=== PATIENT | male | born 1930 | race Caucasian/White ===

== ENCOUNTER 2019-11-01 16:11 | Inpatient (IN) | payer MEDICARE ==
[2019-10-27 09:27] LABS: BASOPHILS % 0.5 % (0.0-1.0); EOSINOPHILS # (AUTO) 0.3 (0.0-0.4); EOSINOPHILS % 3.3 % (0.0-6.0); HEMATOCRIT 33.3 % (38.2-49.6); HEMOGLOBIN 10.5 g/dL (14.0-18.0); LYMPHOCYTES # (AUTO) 1.3 (1.0-3.2); LYMPHOCYTES % 14.7 % (18.0-39.1); MEAN CORPUSCULAR HGB CONC 31.5 g/dL (31-35); MEAN CORPUSCULAR VOLUME 104.7 fL (81-99); MONOCYTES # (AUTO) 0.5 (0.2-0.8); MONOCYTES % 5.3 % (4.4-11.3); NEUTROPHILS # (AUTO) 6.5 (2.1-6.9); NEUTROPHILS % 75.2 % (38.7-80.0); PLATELET COUNT 203 x10e3/uL (140-360); RED BLOOD COUNT 3.18 x10e6/uL (4.3-5.7)
[2019-10-27 09:48] LABS: ANION GAP 12.4 mmol/L (8-16); CALCIUM 8.5 mg/dL (8.4-10.2); CREATININE, SERUM 1.48 mg/dL (0.72-1.25); POTASSIUM 4.4 mmol/L (3.5-5.1)
--- NOTE | 2019-10-27 10:17 | Diagnostic Imaging Report ---
EXAMINATION: CHEST 2 VIEWS INDICATION: ^PREOP ^[id number] ^0900 COMPARISON: None FINDINGS: PA and lateral views TUBES and LINES: None. LUNGS: Lungs are well inflated. Lungs are clear. There is no evidence of pneumonia or pulmonary edema. PLEURA: No pleural effusion or pneumothorax. HEART AND MEDIASTINUM: The cardiomediastinal silhouette is unremarkable. BONES AND SOFT TISSUES: No acute osseous lesion. Soft tissues are unremarkable. UPPER ABDOMEN: No free air under the diaphragm. IMPRESSION: No acute thoracic radiographic abnormality. Signed by: Damon Unger MD on 10/27/2019 10:14 AM
[~2019-11-01] VITALS: Ht 170.2 cm; Wt 76.4 kg
[~2019-11-01 16:11] MED LIST: ACETAMINOPHEN 1000 MG/100 ML IV PRN; ACETAMINOPHEN/CODEINE 300MG - 30MG TAB PO PRN; AMLODIPINE BESYL5 MG PO; ASPIRIN325 MG PO; B&O 60MG R/S 60 MG SUPP PR ONE; B&O 60MG R/S 60 MG SUPP PR PRN; BACTRIM DS TAB1 EACH PO; CALCIUM 500+D1 EACH PO; DIPHENHYDRAMINE HCL 25 MG CAP PO PRN; FERROUS SULFAT324 MG PO; FINASTERIDE5 MG PO; FLOMAX0.4 MG PO; GABAPENTIN300 MG PO; GENTAMICIN 80MG/NS 100 ML 200 ML IV ONE; GLIPIZIDE ER2.5 MG PO; IOPAMIDOL 300MG/ML 50ML INFUS..BTL IV ONE; LEVOTHYROXINE100 MC1 IV; LEVOTHYROXINE50 MCG PO; LIPITOR20 MG PO; MOEXIPRIL HCL15 MG PO; OCULAR VITAMIN1 EACH PO; ONDANSETRON HCL INJ 2MG/ML 2ML 2 MG/ML VIAL IV PRN; PIPER-TAZ 3.375 GM 50 ML ONE; SODIUM CHLORIDE 0.9% 1000ML 1,000 ML ONE; TOPIRAMATE25 MG PO; VITAMIN B-12500 MC3 PO; VITAMIN C1000 MG PO; [UNRECOGNIZED DRUG - OTHER] PO
--- OUTSIDE RECORDS SUMMARY | 2019-11-01 16:13 | XMS REPORT ---
Author Author [facility] Address Unknown Phone Unavailable Care Team Providers Care Store Group Manager Name Role Phone NAMAN PINON Unavailable Unavailable Payers Payer Name Policy Type Policy Number Effective Date Expiration Date Problems This patient has no known problems. Allergies, Adverse Reactions, Alerts Allergy Name Allergy Type Status Severity Reaction(s) Onset Date Inactive Date Treating Clinician Comments No Known Allergies DA Active U 2018-02-25 00:00:00 Medications This patient has no known medications. Results Test Description Test Time Test Comments Text Results Atomic Results Result Comments CHEST 2 VIEWS 2019-10-27 10:13:00 [place] [id number] Patient Name: SHANELL LANDAVERDE MR #: [id number] : 1930 Age/Sex: 89/M Req #: [id number] Adm Physician: Ordered by: NAMAN PINON MD Report #: [id number] Location: OR Room/Bed: Procedure: [id number] DX/CHEST 2 VIEWS Exam Date: 10/27/19 Exam Time: 0900 REPORT STATUS: Signed EXAMINATION: CHEST 2 VIEWS INDICATION: PREO P [id number] 0900 COMPARISON: None FINDINGS: PA and lateral views TUBES and LINES: None. LUNGS: Lungs are well inflated. Lungs are clear. There is no evidence of pneumonia or pulmonary edema. PLEURA: No pleural effusion or pneumothorax. HEART AND MEDIASTINUM: The cardiomediastinal silhouette is unremarkable. BONES AND SOFT TISSUES: No acute osseous lesion. Soft tissues are unremarkable. UPPER ABDOMEN: No free air under the diaphragm. IMPRESSION: No acute thoracic radiographic abnormality. Signed by: Sofia Thomas MD on 10/27/2019 10:14 AM Dictated By: SOFIA THOMAS MD [id number] Transcribed By: NAYE on 10/27/19 1014 COPY TO: NAMAN PINON MD
[2019-11-01 16:33] LABS: BASOPHILS % 0.4 % (0.0-1.0); EOSINOPHILS # (AUTO) 0.2 (0.0-0.4); EOSINOPHILS % 2.3 % (0.0-6.0); HEMATOCRIT 33.3 % (38.2-49.6); HEMOGLOBIN 10.1 g/dL (14.0-18.0); LYMPHOCYTES % 14.7 % (18.0-39.1); MEAN CORPUSCULAR HGB CONC 30.3 g/dL (31-35); MEAN CORPUSCULAR VOLUME 108.8 fL (81-99); MONOCYTES # (AUTO) 0.3 (0.2-0.8); MONOCYTES % 4.6 % (4.4-11.3); NEUTROPHILS # (AUTO) 5.3 (2.1-6.9); NEUTROPHILS % 76.8 % (38.7-80.0); PLATELET COUNT 142 x10e3/uL (140-360); RED BLOOD COUNT 3.06 x10e6/uL (4.3-5.7); RED CELL DISTRIBUTION WIDTH 14.5 % (11.7-14.4)
[2019-11-01 16:43] VITALS: BP 146/67
--- NOTE | 2019-11-01 16:45 | NUR ---
RECEIVED PATIENT FROM OR. PATIENT A/O X3, EVEN RESPIRATIONS. LUNG SOUNDS CLEAR. SHELDON WITH CBI IN PLACE. URINE IS AMEZCUA COLOR. SCD'S BILATERALLY, PATIENT DENIES PAIN. LEFT FA 20 GAUGE IV WITH IVF @ 125 CC/HR. CALL LIGHT IN REACH WILL CONTINUE TO MONITOR PATIENT.
[2019-11-01 16:51] LABS: ANION GAP 12.6 mmol/L (8-16); CALCIUM 8.2 mg/dL (8.4-10.2); CREATININE, SERUM 1.42 mg/dL (0.72-1.25); POTASSIUM 4.6 mmol/L (3.5-5.1)
--- NOTE | 2019-11-01 17:18 | Diagnostic Imaging Report ---
Exam: Bilateral retrograde pyeloureterogram Clinical history: Hydronephrosis Total fluoroscopy time 14 seconds Total images 11 Findings: Contrast was introduced into the renal collecting systems in retrograde fashion intraoperatively. Radiologist was not present during the evaluation. Multi focal narrowings are noted in the right mid ureter without evidence of hydronephrosis. Irregularity and mild to moderate narrowing of the left proximal and mid ureter is also noted. There is no evidence of left hydronephrosis. Please refer to the operative findings for further details. Signed by: Dr. Ken Ventura MD on 11/01/2019 5:15 PM
[2019-11-01] MEDS: DOCUSATE SODIUM 100 MG CAP PO SCH (17:35)
[2019-11-01] MEDS: D5.45%NS/KCL 20MEQ 1,000 ML IV SCH (17:36)
[2019-11-01] MEDS: PHENAZOPYRIDINE HCL 100 MG TAB PO SCH (17:36)
[2019-11-01] MEDS ORDERED: SEVOFLURANE INHAL SOLN 250 ML PEN BTL ONE (17:50)
[2019-11-01] MEDS ORDERED: DEXAMETHASONE SOD PHOS INJ 4 MG/ML VIAL ONE (17:50)
[2019-11-01] MEDS ORDERED: ONDANSETRON HCL INJ 2MG/ML 2ML 2 MG/ML VIAL ONE (17:50)
[2019-11-01] MEDS ORDERED: PROPOFOL IV EMULSION 10 MG/ML 20 ML VIAL ONE (17:50)
[2019-11-01] MEDS ORDERED: LIDOCAINE HCL 2% LOCAL INJ 5 ML SDV VIAL INJ ONE (17:50)
[2019-11-01 18:17] VITALS: BP 146/67
[2019-11-01 18:25] VITALS: BP 146/67
[2019-11-01] MEDS ORDERED: FENTANYL CITRATE/PF 100MCG/2 ML INJ ONE (18:43)
--- NOTE | 2019-11-01 19:24 | NUR ---
Patient's Son brought wrist watch and cellphone for patient.
[2019-11-01 20:00] VITALS: BP 156/69
[2019-11-01] MEDS ORDERED: DEXTROSE 50% SYRINGE 50 ML IV PRN ×3 (20:15)
[2019-11-01 20:22] VITALS: BP 156/69
[2019-11-01] MEDS ORDERED: TOPIRAMATE 25 MG TAB PO SCH (21:00)
[2019-11-01] MEDS ORDERED: ATORVASTATIN 20 MG TAB PO SCH (21:00)
[2019-11-01] MEDS ORDERED: TOPIRAMATE 100 MG TAB PO SCH (21:00)
[2019-11-01] MEDS: TOPIRAMATE 25 MG TAB PO SCH (21:26)
[2019-11-01] MEDS: TOPIRAMATE 100 MG TAB PO SCH (21:26)
[2019-11-01] MEDS: INSULIN LISPRO 100 UNIT/1 ML 3ML VIAL SQ SCH (21:26)
[2019-11-01] MEDS: TRIMETHOPRIM/SULFAMETHOXAZOLE 160-800 MG TAB PO SCH (21:26)
[2019-11-01] MEDS: ATORVASTATIN 10 MG TAB PO SCH (21:26)
--- NOTE | 2019-11-01 21:37 | NUR ---
call received from pharmacy to verify regarding pt's home medication nitrous oxide. Patient's states he does not take it anymore. Pharmacy made aware.
[2019-11-02] VITALS (8 sets, daily range): BP systolic 105–129; BP diastolic 51–68
[2019-11-02] MEDS: D5.45%NS/KCL 20MEQ 1,000 ML IV SCH ×2 (01:38→10:22)
[2019-11-02] MEDS: LEVOTHYROXINE SODIUM 125 MCG TAB PO SCH (06:08)
--- NOTE | 2019-11-02 07:00 | NUR ---
RECEIVED PATIENT AWAKE RESTING IN BED NO S/S OF DISTRESS. BED LOW, WHEELS LOCKED, SIDE RAILS X2, CALL LIGHT WITHIN REACH WILL CONTINUE TO MONITOR PATIENT.
[2019-11-02] MEDS: INSULIN LISPRO 100 UNIT/1 ML 3ML VIAL SQ SCH ×4 (07:30→21:00)
[2019-11-02] MEDS: ZINC OX PO SCH ×2 (08:19→16:17)
[2019-11-02] MEDS: LUTEIN PO SCH ×2 (08:19→16:17)
[2019-11-02] MEDS: [UNRECOGNIZED DRUG - OTHER] PO SCH ×2 (08:19→16:17)
[2019-11-02] MEDS: PHENAZOPYRIDINE HCL 100 MG TAB PO SCH ×3 (08:22→17:12)
[2019-11-02] MEDS: CYANOCOBALAMIN 1,000 MCG TAB PO SCH (08:22)
[2019-11-02] MEDS: LACTOBACILLUS ACIDOPHILUS CAPSULE PO SCH (08:22)
[2019-11-02] MEDS: GLIPIZIDE 2.5 MG TABCR PO SCH (08:22)
[2019-11-02] MEDS: GABAPENTIN 300 MG CAP PO SCH ×2 (08:22→17:12)
[2019-11-02] MEDS: DOCUSATE SODIUM 100 MG CAP PO SCH ×2 (08:22→17:12)
[2019-11-02] MEDS: ASCORBIC ACID 500 MG TAB PO SCH (08:22)
[2019-11-02] MEDS: TRIMETHOPRIM/SULFAMETHOXAZOLE 160-800 MG TAB PO SCH ×2 (08:22→21:17)
[2019-11-02] MEDS ORDERED: GLIPIZIDE 2.5 MG TABCR PO SCH (09:00)
[2019-11-02] MEDS ORDERED: CYANOCOBALAMIN PO SCH (09:00)
[2019-11-02] MEDS ORDERED: [UNRECOGNIZED DRUG - OTHER] PO SCH (09:00)
[2019-11-02] MEDS ORDERED: LEVOTHYROXINE SODIUM 50 MCG TAB PO SCH (09:00)
[2019-11-02] MEDS ORDERED: NON-FORMULARY MEDICATION (Ascorbic Acid (Vitamin C) 1,000 MG) PO SCH (09:00)
[2019-11-02 10:12] LABS: BASOPHILS % 0.2 % (0.0-1.0); EOSINOPHILS # (AUTO) 0.2 (0.0-0.4); EOSINOPHILS % 2.2 % (0.0-6.0); HEMATOCRIT 29.6 % (38.2-49.6); HEMOGLOBIN 9.2 g/dL (14.0-18.0); LYMPHOCYTES # (AUTO) 1.3 (1.0-3.2); LYMPHOCYTES % 14.8 % (18.0-39.1); MEAN CORPUSCULAR HEMOGLOBIN 33.7 pg (28-32); MEAN CORPUSCULAR HGB CONC 31.1 g/dL (31-35); MEAN CORPUSCULAR VOLUME 108.4 fL (81-99); MONOCYTES # (AUTO) 0.7 (0.2-0.8); MONOCYTES % 7.6 % (4.4-11.3); NEUTROPHILS # (AUTO) 6.5 (2.1-6.9); NEUTROPHILS % 74.9 % (38.7-80.0); PLATELET COUNT 133 x10e3/uL (140-360); RED BLOOD COUNT 2.73 x10e6/uL (4.3-5.7); RED CELL DISTRIBUTION WIDTH 14.4 % (11.7-14.4)
--- NOTE | 2019-11-02 12:20 | NUR ---
ASSESSMENT: No concerns expressed Intervention: Provided hospitality and information on how to reach hospital unit clerk, if needed. Outcome: Pt expressed appreciation for visit. No need to follow at this time. MIKE ACHARYA Votator Machine Operator Spiritual Care Department O: [phone] Pager: [phone] ([phone] number calling from)
[2019-11-02] MEDS ORDERED: DEXTROSE 50% SYRINGE 50 ML IV PRN ×4 (12:30→13:00)
[2019-11-02] MEDS ORDERED: KCL 20MEQ/.9 SOD CHL 1,000 ML IV ONE (12:45)
[2019-11-02] MEDS ORDERED: BISACODYL 10 MG SUPP PR ONE (12:45)
[2019-11-02 13:38] LABS: ANION GAP 10.5 mmol/L (8-16); CALCIUM 7.8 mg/dL (8.4-10.2); CREATININE, SERUM 1.44 mg/dL (0.72-1.25); POTASSIUM 4.5 mmol/L (3.5-5.1)
[2019-11-02] MEDS ORDERED: INSULIN LISPRO 100 UNIT/1 ML 3ML VIAL SQ SCH (16:30)
[2019-11-02] MEDS: TOPIRAMATE 100 MG TAB PO SCH (21:17)
[2019-11-02] MEDS: TOPIRAMATE 25 MG TAB PO SCH (21:17)
[2019-11-02] MEDS: ATORVASTATIN 10 MG TAB PO SCH (21:17)
[2019-11-03] VITALS (8 sets, daily range): BP systolic 112–162; BP diastolic 57–70
[2019-11-03 05:09] LABS: BASOPHILS % 0.6 % (0.0-1.0); EOSINOPHILS # (AUTO) 0.3 (0.0-0.4); EOSINOPHILS % 4.7 % (0.0-6.0); HEMATOCRIT 30.2 % (38.2-49.6); HEMOGLOBIN 9.2 g/dL (14.0-18.0); LYMPHOCYTES # (AUTO) 1.5 (1.0-3.2); LYMPHOCYTES % 22.4 % (18.0-39.1); MEAN CORPUSCULAR HEMOGLOBIN 32.7 pg (28-32); MEAN CORPUSCULAR HGB CONC 30.5 g/dL (31-35); MEAN CORPUSCULAR VOLUME 107.5 fL (81-99); MONOCYTES # (AUTO) 0.6 (0.2-0.8); MONOCYTES % 8.8 % (4.4-11.3); NEUTROPHILS # (AUTO) 4.3 (2.1-6.9); NEUTROPHILS % 62.9 % (38.7-80.0); PLATELET COUNT 140 x10e3/uL (140-360); RED BLOOD COUNT 2.81 x10e6/uL (4.3-5.7); RED CELL DISTRIBUTION WIDTH 14.6 % (11.7-14.4)
[2019-11-03 05:31] LABS: ANION GAP 8.7 mmol/L (8-16); CALCIUM 7.9 mg/dL (8.4-10.2); CREATININE, SERUM 1.63 mg/dL (0.72-1.25); POTASSIUM 4.7 mmol/L (3.5-5.1)
[2019-11-03] MEDS: LEVOTHYROXINE SODIUM 125 MCG TAB PO SCH (06:23)
--- NOTE | 2019-11-03 07:00 | NUR ---
BEDSIDE SHIFT REPORT RECEIVED FROM THE PROCESSING INSPECTOR RN. EDUCATED PT ABOUT FALL PRECAUTIONS. PT VERBALIZED UNDERSTANDING. CALL LIGHT WITH IN EASY REACH. FAMILY MEMBER AT BEDSIDE. SIDE RAILS X2. BED ALARM IS ON. PT DENIES NEEDS AT THIS TIME.
[2019-11-03] MEDS: INSULIN LISPRO 100 UNIT/1 ML 3ML VIAL SQ SCH ×4 (07:30→21:00)
[2019-11-03] MEDS: GLIPIZIDE 2.5 MG TABCR PO SCH (09:00)
[2019-11-03] MEDS: [UNRECOGNIZED DRUG - OTHER] PO SCH ×2 (09:00→16:03)
[2019-11-03] MEDS: ZINC OX PO SCH ×2 (09:00→16:03)
[2019-11-03] MEDS: LUTEIN PO SCH ×2 (09:00→16:03)
[2019-11-03] MEDS: TRIMETHOPRIM/SULFAMETHOXAZOLE 160-800 MG TAB PO SCH (09:01)
[2019-11-03] MEDS: DOCUSATE SODIUM 100 MG CAP PO SCH ×2 (09:01→16:42)
[2019-11-03] MEDS: CYANOCOBALAMIN 1,000 MCG TAB PO SCH (09:01)
[2019-11-03] MEDS: ASCORBIC ACID 500 MG TAB PO SCH (09:01)
[2019-11-03] MEDS: GABAPENTIN 300 MG CAP PO SCH ×2 (09:01→16:42)
[2019-11-03] MEDS: LACTOBACILLUS ACIDOPHILUS CAPSULE PO SCH (09:01)
[2019-11-03] MEDS: PHENAZOPYRIDINE HCL 100 MG TAB PO SCH ×3 (09:03→17:22)
[2019-11-03] MEDS: SODIUM CHLORIDE 0.9% 1000ML 1,000 ML IV SCH (16:42)
[2019-11-03 17:14] LABS: INR 1.05; PARTIAL THROMBOPLASTIN TIME 30.9 seconds (23.8-35.5); PROTHROMBIN TIME 14.4 seconds (11.9-14.5)
--- NOTE | 2019-11-03 19:00 | NUR ---
BEDSIDE SHIFT REPORT GIVEN TO THE BUSINESS INTELLIGENCE DEVELOPER RN. PT DENIED FURTHER NEEDS.
--- NOTE | 2019-11-03 19:08 | NUR ---
Received patient from day nurse, patient is alert and oriented at this time, safety and fall precautions maintained: bed in lowest position and locked, needed items beside bed, call younger placed close to patient, patient is currently stable will continue to monitor. patient on cbi, out put is yellow.
[2019-11-03] MEDS: ATORVASTATIN 10 MG TAB PO SCH (21:12)
[2019-11-03] MEDS: TOPIRAMATE 100 MG TAB PO SCH (21:12)
[2019-11-03] MEDS: TOPIRAMATE 25 MG TAB PO SCH (21:19)
[2019-11-04] VITALS: BP 103/54
[2019-11-04 04:00] VITALS: BP 129/63
[2019-11-04] MEDS: SODIUM CHLORIDE 0.9% 1000ML 1,000 ML IV SCH ×2 (05:17→16:51)
[2019-11-04] MEDS: LEVOTHYROXINE SODIUM 125 MCG TAB PO SCH (05:17)
[2019-11-04 05:57] LABS: HEMATOCRIT 31.7 % (38.2-49.6); HEMOGLOBIN 9.6 g/dL (14.0-18.0)
[2019-11-04 06:07] LABS: ANION GAP 9.8 mmol/L (8-16); CALCIUM 8.3 mg/dL (8.4-10.2); CREATININE, SERUM 1.42 mg/dL (0.72-1.25); POTASSIUM 4.8 mmol/L (3.5-5.1)
[2019-11-04 06:24] LABS: BASOPHILS % 0.4 % (0.0-1.0); EOSINOPHILS # (AUTO) 0.4 (0.0-0.4); EOSINOPHILS % 5.4 % (0.0-6.0); HEMOGLOBIN 9.7 g/dL (14.0-18.0); LYMPHOCYTES # (AUTO) 2.5 (1.0-3.2); LYMPHOCYTES % 33.1 % (18.0-39.1); MEAN CORPUSCULAR HEMOGLOBIN 33.1 pg (28-32); MEAN CORPUSCULAR HGB CONC 30.3 g/dL (31-35); MEAN CORPUSCULAR VOLUME 109.2 fL (81-99); MONOCYTES # (AUTO) 0.7 (0.2-0.8); MONOCYTES % 9.2 % (4.4-11.3); NEUTROPHILS # (AUTO) 3.9 (2.1-6.9); NEUTROPHILS % 51.4 % (38.7-80.0); PLATELET COUNT 150 x10e3/uL (140-360); RED BLOOD COUNT 2.93 x10e6/uL (4.3-5.7); RED CELL DISTRIBUTION WIDTH 14.6 % (11.7-14.4)
--- NOTE | 2019-11-04 06:41 | NUR ---
duplicate bmp cancelled
--- NOTE | 2019-11-04 07:00 | NUR ---
patient endorsed to next shift for continuity of care.
--- NOTE | 2019-11-04 07:00 | NUR ---
BEDSIDE SHIFT REPORT RECEIVED FROM THE ADMINISTRATIVE ACCOUNTANT RN. EDUCATED PT ABOUT FALL PRECAUTIONS. PT VERBALIZED UNDERSTANDING. CALL LIGHT WITH IN EASY REACH. BED IS LOW AND LOCKED. SIDE RAILS X2. BED ALARM IS ON. PT DENIES NEEDS AT THIS TIME.
--- NOTE | 2019-11-04 07:15 | NUR ---
patient endorsed to next shift for continuity of care. patient cbi intake was 30,000mls plus and output was 30,000mls plus
--- NOTE | 2019-11-04 07:15 | NUR ---
REPORTED PT HGB AND HCT VALUES TO DR. SIERRA PER THE ORDER FROM THE
[2019-11-04] MEDS: INSULIN LISPRO 100 UNIT/1 ML 3ML VIAL SQ SCH ×3 (07:30→16:30)
[2019-11-04 08:08] VITALS: BP 138/64
[2019-11-04] MEDS: LUTEIN PO SCH ×2 (08:45→16:46)
[2019-11-04] MEDS: [UNRECOGNIZED DRUG - OTHER] PO SCH ×2 (08:45→16:46)
[2019-11-04] MEDS: GLIPIZIDE 2.5 MG TABCR PO SCH (08:45)
[2019-11-04] MEDS: ZINC OX PO SCH ×2 (08:45→16:46)
[2019-11-04] MEDS: ASCORBIC ACID 500 MG TAB PO SCH (08:46)
[2019-11-04] MEDS: DOCUSATE SODIUM 100 MG CAP PO SCH ×2 (08:46→16:51)
[2019-11-04] MEDS: LACTOBACILLUS ACIDOPHILUS CAPSULE PO SCH (08:46)
[2019-11-04] MEDS: PHENAZOPYRIDINE HCL 100 MG TAB PO SCH ×3 (08:46→17:03)
[2019-11-04] MEDS: CYANOCOBALAMIN 1,000 MCG TAB PO SCH (08:46)
[2019-11-04] MEDS: GABAPENTIN 300 MG CAP PO SCH ×2 (08:46→16:51)
[2019-11-04 09:51] VITALS: BP 138/64
[2019-11-04 12:08] VITALS: BP 136/63
--- NOTE | 2019-11-04 13:00 | NUR ---
SHELDON REMOVED PER THE ORDER BY DR. PINON. PT TOLERATED WELL. 600 ML CLEAR , ORANGE COLOR URINE IN THE SHELDON BAG. PT DENIED FURTHER NEEDS.
--- NOTE | 2019-11-04 13:00 | NUR ---
DR. SIERRA AT BEDSIDE. OKAY TO D/C PT IF DR. PINON IS OKAY. NO NEW PRESCRIPTIONS, CONTINUE HOME MEDS PE DR. SIERRA.
--- NOTE | 2019-11-04 14:00 | NUR ---
PT VOIDED 100 ML URINE. CLEAR, RED COLOR. SERIAL URINE STARTED.
[2019-11-04 16:45] VITALS: BP 161/73
[2019-11-04] MEDS ORDERED: TRIMETHOPRIM/SULFAMETHOXAZOLE 160-800 MG TAB PO SCH (17:00)
--- NOTE | 2019-11-04 17:26 | NUR ---
PT VOIDING WELL. CLEAR YELLOW URINE. PAGED DR. PINON AND REPORTED THE SAME. OKAY TO D/C PT PER DR. PINON.
[2019-11-04] MEDS ORDERED: TYLENOL # 31 EA (18:09)
[2019-11-04] MEDS ORDERED: LEVAQUIN500 MG PO (18:09)
--- NOTE | 2019-11-04 18:25 | NUR ---
PT DISCHARGED HOME SAFELY WITH HIS SON. IV REMOVED. TIP INTACT. DRESSING APPLIED. DISCHARGE INSTRUCTIONS GIVEN AND PT VERBALIZED UNDERSTANDING. RX GIVEN. PT ESCORTED TO THE FRONT ENTRANCE WITH THE TECH. PT DENIED FURTHER NEEDS.
--- NOTE | 2019-11-07 01:15 | Discharge Summary ---
HOSPITAL COURSE: The patient was hospitalized for transurethral resection of the prostate, which was performed on the day of hospitalization. Postoperative course was satisfactory. Complications included transient hematuria, which resolved on postoperative day #1. The patient voided without a Wang on the final hospital day. History includes type 2 diabetes, which was monitored and treated medically. History has included echocardiogram on January 06, 2018 with impaired relaxation. The patient experienced no congestive heart failure while here. History includes multiple severe chronic medical illnesses including degenerative joint disease, primary hypertension, hypothyroidism, and these were managed medically fairly. Chemistries were monitored as were hematocrits. Renal function was improved from admission prior to discharge. Hemoglobin was 9.7 on November 04. INR and PTT essentially normal. The patient and family were counseled regarding his findings. See also path reports when available. EMR with the patient's imaging and laboratory studies were reviewed daily, see same. FINAL IMPRESSION: 1. As above, prostatic hypertrophy. 2. TURP, this admission. 3. 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 4. Coronary artery disease. 5. Impaired relaxation. 6. Old echocardiogram 01/06/2018. No clinical congestive heart failure. 7. Cholelithiasis. 8. Degenerative joint disease of the hips. 9. Primary hypertension. 10. Hypothyroidism. 11. Allergic rhinitis. 12. See also final discharge med list. The patient was asked to follow up closely with his surgeon. He is followed routinely regarding his medicine problems. MD SABAS Christianson/LEOL /[id number]
--- NOTE | 2019-12-12 23:47 | Operative Report ---
DATE OF PROCEDURE: 11/01/2019 SURGEON: Eugene Harvey MD PREOPERATIVE DIAGNOSES: 1. Obstructive benign prostatic hyperplasia. 2. Urinary tract infections. POSTOPERATIVE DIAGNOSES: 1. Obstructive benign prostatic hyperplasia. 2. Urinary tract infections. OPERATION PERFORMED: 1. Cystourethroscopy with bilateral ureteral catheterization and retrograde ureteropyelography (separate procedure performed for the urinary tract infections). 2. Interpretation of retrograde ureteropyelography. 3. Supervision of fluoroscopy, no radiologist present. 4. Cystourethroscopy with transurethral resection of the prostate utilizing the plasma button electrode. ANESTHESIA: General. COMPLICATIONS: None. CLINICAL SUMMARY: Michael Gardner is an 89-year-old man with the above preoperative diagnoses. He is brought for the above procedures. He is aware of the risks of bleeding, infection, injury to adjacent structures, need for additional procedures and elected to proceed. OPERATIVE PROCEDURE IN DETAIL: Informed consent was verified. Mr. Gardner was properly identified and taken to the operating room, placed on the cystoscopy table in supine position. Anesthesia was uneventfully begun. The patient was then carefully and gently repositioned in the dorsal lithotomy position with all pressure points well padded. His genitalia were prepared and draped in usual sterile fashion. The cystoscope sheath with visual obturator in place was atraumatically inserted into the patient's urethra and was guided down the unremarkable distal urethra through normal sphincteric region through the prostate bed, which was significant for severely obstructing BPH. We entered the patient's bladder. Panendoscopy revealed diffuse diverticula and this is a longstanding obstruction. No suspicious lesions were identified. A ureteral catheter was used to cannulate each ureter and retrograde ureteropyelograms were performed. Interpretation of retrograde ureteropyelography contrast was instilled in retrograde fashion bilaterally. There was ureterectasis down to the level of the patient's bladder where the very thickened bladder wall was obviously obstructing the flow of upper tract urine. There was bilateral ureteral tortuosity present as well as bilateral ureteral diverticula. 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 It seemed to fill upon retrograde injection. This was most evident on the drainage films. The drainage films also demonstrated very well bilateral ureteral diverticula. The cystoscope was withdrawn. The resectoscope was atraumatically placed. Transurethral resection of prostate was then carried out utilizing the plasma button electrode. We vaporized the prostate from the bladder neck to maneuver, past the verumontanum and down the surgical capsule. Wide open prostatic bed was achieved. The resectoscope was withdrawn. Wang catheter was placed. He was placed on continuous irrigation with clear efflux. The patient was then uneventfully reversed from anesthesia and taken to recovery room in stable condition. There were no complications to the procedure. He tolerated procedure well. Estimated blood loss was minimal. Explicit postoperative instructions were given. We will plan to proceed with routine postoperative care and ongoing urological followup. Eugene Harvey MD [place]/MODL /[id number] cc: MD Eugene Christianson MD
== END 2019-11-04 18:30 | disposition home or self-care (01) | DRG 713 ==
LOC: OR 16:11 → PACU V 16:15 → MED/SURG 16:42
PROVIDERS: ADMIT Internal Medicine; ATTEND Internal Medicine
PROC: BT141ZZ Fluoroscopy of Kidneys, Ureters and Bladder using Low Osmolar Contrast (ICD-10-PCS; principal; 2019-11-01 11:30)
PROC: 0V508ZZ Destruction of Prostate, Via Natural or Artificial Opening Endoscopic (ICD-10-PCS; 2019-11-01 11:30)
DX: N40.1 Benign prostatic hyperplasia with lower urinary tract symptoms (principal); K92.1 Melena; N39.41 Urge incontinence; R39.14 Feeling of incomplete bladder emptying; R33.8 Other retention of urine; R39.12 Poor urinary stream; E78.00 Pure hypercholesterolemia, unspecified; E78.5 Hyperlipidemia, unspecified; I25.10 Atherosclerotic heart disease of native coronary artery without angina pectoris; N18.3 Chronic kidney disease, stage 3 (moderate); Z86.73 Personal history of transient ischemic attack (TIA), and cerebral infarction without residual deficits; E03.9 Hypothyroidism, unspecified; Z95.5 Presence of coronary angioplasty implant and graft; I25.2 Old myocardial infarction; E11.42 Type 2 diabetes mellitus with diabetic polyneuropathy; I12.9 Hypertensive chronic kidney disease with stage 1 through stage 4 chronic kidney disease, or unspecified chronic kidney disease; E11.22 Type 2 diabetes mellitus with diabetic chronic kidney disease; E11.21 Type 2 diabetes mellitus with diabetic nephropathy; K80.20 Calculus of gallbladder without cholecystitis without obstruction; M16.0 Bilateral primary osteoarthritis of hip; J30.9 Allergic rhinitis, unspecified; R31.9 Hematuria, unspecified; Z79.82 Long term (current) use of aspirin; Z79.84 Long term (current) use of oral hypoglycemic drugs
CPT/HCPCS: 36415; 71046; 74420; 80048; 82948; 83735; 83880; 85014; 85018; 85025; 85610; 85730; 93005; C1758; J1100; J1580; J2001; J2405; J2543; J3010; J7030